=== PATIENT | female | born 1980 | race Caucasian/White ===

== ENCOUNTER 2018-09-08 13:38 | Emergency (ER) | payer OTHER ==
[~2018-09-08] VITALS: Ht 165.1 cm; Wt 60.8 kg
[2018-09-08] MEDS ORDERED: KEFLEX500 M1 PO (13:42)
[2018-09-08 14:41] LABS: ABSOLUTE NEUTROPHILS 8.2 thou/uL (1.4-8.2); BASOPHILS 0.4 % (0.0-2.0); EOSINOPHILS 1.6 % (0.0-3.0); HEMATOCRIT 37.2 % (37.0-47.0); HEMOGLOBIN 12.3 gm/dL (12.0-15.0); LYMPHOCYTES 14.7 % (24.0-44.0); MCH 30.7 pg (26.0-34.0); MCHC 33.1 g/dL (28.0-37.0); MCV 92.7 fL (80.0-100.0); MONOCYTES 6.5 % (1.0-8.0); PLATELET COUNT 172 thou/uL (150-400); POLYS 76.8 % (36.0-66.0); RBC 4.01 mil/uL (4.20-5.00); RDW 13.6 % (10.5-14.5); WBC 10.6 thou/uL (4.0-11.0)
[2018-09-08 14:50] LABS: CREATININE 0.7 mg/dL (0.6-1.0); POTASSIUM 4.7 mmol/L (3.5-5.1)
[2018-09-08] MEDS ORDERED: BACTRIM DS TAB1 EACH PO (15:25)
[2018-09-08 15:40] VITALS: BP 102/73
== END 2018-09-08 15:42 | disposition home or self-care (01) ==
LOC: ER 13:38
PROVIDERS: Nurse Practitioner Family
DX: S60.415A Abrasion of left ring finger, initial encounter (principal); L03.114 Cellulitis of left upper limb; Z88.5 Allergy status to narcotic agent; W26.8XXA Contact with other sharp object(s), not elsewhere classified, initial encounter; Y93.89 Activity, other specified; Y92.89 Other specified places as the place of occurrence of the external cause; Y99.8 Other external cause status